=== PATIENT | male | born 1970 | race Caucasian/White ===

== ENCOUNTER → 2016-11-01 | Outpatient (CLI) | payer BC ==
[~2016-11-01] MED LIST: ASPIRIN E.C. 8181 MG PO; BRILINTA90 MG PO; BYSTOLIC2.5 MG PO; BYSTOLIC5 MG PO; ELIDEL CREAM15 GM TP; LAMICTAL 25MG T25 MG PO; LEXAPRO 10MG10 MG PO; LIPITOR 40MG TA40 MG PO; NEXIUM40 MG PO; NITROSTAT0.4 MG/TAB SL; NORCO 325 MG-51 TAB PO; PLAVIX 75MG TAB75 MG PO; PROTONIX 40MG T40 MG PO; TOPROL PO; TOPROL XL 50MG50 MG PO; VASOTEC 5MG5 MG/TAB PO; VIIBRYD20 MG PO; XANAX 0.5MG0.5 MG PO; XANAX0.5 MG PO; ZANTAC 7575 MG PO
== END ==
LOC: BHSO 09:45
DX: F41.1 Generalized anxiety disorder (principal)

== ENCOUNTER → 2016-12-06 | Outpatient (CLI) | payer BC | LOC: BHSO 10:01 | DX: F41.1 Generalized anxiety disorder (principal) ==

== ENCOUNTER → 2017-01-17 | Outpatient (CLI) | payer BC | LOC: BHSO 13:43 | DX: F41.1 Generalized anxiety disorder (principal) ==

== ENCOUNTER → 2017-03-01 | Outpatient (CLI) | payer BC ==
[2017-03-01 11:16] VITALS: BP 130/100; PULSE 123
== END ==
LOC: COL.CARD 02-15 11:30
DX: I25.10 Atherosclerotic heart disease of native coronary artery without angina pectoris (principal)
CPT/HCPCS: A9502

== ENCOUNTER → 2017-03-10 | Outpatient (CLI) | payer BC | LOC: BHSO 15:37 | DX: F41.1 Generalized anxiety disorder (principal) ==

== ENCOUNTER 2017-04-19 18:07 | Emergency (ER) | payer OTHER ==
[2006-05-08 11:20] VITALS: BP 143/83
[~2017-04-19] VITALS: Ht 170.2 cm; Wt 102.3 kg
[~2017-04-19 18:07] MED LIST changes: -NORCO 325 MG-51 TAB PO
[2017-04-19 18:13] VITALS: TEMP 99.1
[2017-04-19] MEDS ORDERED: NORCO 325 MG-51 TAB PO (19:43)
[2017-04-19 19:55] VITALS: BP 130/78; PULSE 80
== END 2017-04-19 19:55 | disposition home or self-care (01) ==
LOC: COL.ER 18:07
DX: S80.12XA Contusion of left lower leg, initial encounter (principal); I10 Essential (primary) hypertension; F41.9 Anxiety disorder, unspecified; K21.9 Gastro-esophageal reflux disease without esophagitis; Z79.82 Long term (current) use of aspirin; V28.4XXA Motorcycle driver injured in noncollision transport accident in traffic accident, initial encounter; Y93.I9 Activity, other involving external motion

== ENCOUNTER → 2017-06-09 | Outpatient (CLI) | payer OTHER ==
[~2017-06-09] MED LIST changes: +NORCO 325 MG-51 TAB PO
== END ==
LOC: BHSO 10:28
DX: F41.1 Generalized anxiety disorder (principal)

== ENCOUNTER → 2017-07-18 | Outpatient (CLI) | payer OTHER | LOC: BHSO 10:37 | DX: F41.1 Generalized anxiety disorder (principal) ==

== ENCOUNTER 2017-08-09 14:02 | Emergency (ER) | payer BC ==
[2006-05-08 11:20] VITALS: BP 143/83
[~2017-08-09] VITALS: Ht 170.2 cm; Wt 100.0 kg
[2017-08-09 14:08] VITALS: TEMP 97.8
[2017-08-09 15:06] LABS: BASO # 0.1 (0.0-0.2); BASO % 0.5 % (0.0-2.0); EOS # 0.1 (0.0-0.7); GRAN # 10.1 (1.4-6.5); HEMATOCRIT 42.9 % (42.0-52.0); LYMPH # 1.8 (1.2-3.4); LYMPH % 14.2 % (20.0-51.0); MEAN CELL VOLUME 89 fl (80.0-100.0); MEAN CORPUSCULAR HEMOGLOBIN 31 pg (27.0-31.0); MEAN CORPUSCULAR HGB CONC 35 g/dl (33.0-37.0); MEAN PLATELET VOLUME 9.6 fl (7.4-10.4); MONO # 0.5 (0.1-0.6); PLATELET COUNT 223 K/mm3 (130-400); WHITE BLOOD COUNT 12.6 K/mm3 (4.8-10.8)
[2017-08-09 15:07] LABS: INR 1.2 (0.8-3.0); PROTHROMBIN TIME 12.8 SECONDS (9.7-12.8)
[2017-08-09 15:09] LABS: PARTIAL THROMBOPLASTIN TIME 31.8 SECONDS (26.0-37.0)
[2017-08-09 15:11] LABS: ADJUSTED CALCIUM 8.6 mg/dL (8.4-10.2); ALANINE AMINOTRANSFERASE 68 U/L (21-72); ALBUMIN 5.2 gm/dL (3.5-5.0); ALKALINE PHOSPHATASE 96 U/L (50-136); ANION GAP 13 mmol/L (7-16); BILIRUBIN,TOTAL 0.9 mg/dL (0.0-1.0); BLOOD UREA NITROGEN 15 mg/dL (9-20); CALCIUM 9.6 mg/dL (8.4-10.2); CARBON DIOXIDE 22 mmol/L (22-30); CHLORIDE 106 mmol/L (98-107); CREATININE, serum 0.95 mg/dL (0.66-1.25); GLUCOSE 132 mg/dL (74-106); POTASSIUM 3.7 mmol/L (3.4-5.0); SODIUM 142 mmol/L (137-145); TOTAL PROTEIN 7.5 gm/dL (6.4-8.2)
[2017-08-09 15:23] LABS: TROPONIN-I < 0.012 ng/mL (0.000-0.034)
[2017-08-09 18:45] VITALS: BP 126/80; PULSE 94
== END 2017-08-09 18:55 | disposition home or self-care (01) ==
LOC: COL.ER 14:02
PROVIDERS: Emergency Medicine
DX: R07.89 Other chest pain (principal); I10 Essential (primary) hypertension; E78.5 Hyperlipidemia, unspecified; Z95.5 Presence of coronary angioplasty implant and graft

== ENCOUNTER → 2017-08-21 | Outpatient (CLI) | payer BC | LOC: COL.RAD 08:00 | DX: K21.0 Gastro-esophageal reflux disease with esophagitis (principal) ==

== ENCOUNTER → 2017-09-01 | Outpatient (CLI) | payer BC | LOC: BHSO 08:55 | DX: F41.1 Generalized anxiety disorder (principal) ==

== ENCOUNTER 2018-04-13 13:12 | Emergency (ER) | payer BC ==
[2006-05-08 11:20] VITALS: BP 143/83
[~2018-04-13] VITALS: Ht 170.2 cm; Wt 96.8 kg
[2018-04-13 13:19] VITALS: TEMP 98.4
[2018-04-13 13:40] LABS: BASO % 0.5 % (0.0-2.0); EOS # 0.3 (0.0-0.7); EOS % 2.8 % (0-4.0); GRAN # 6.5 (1.4-6.5); GRAN % 73.4 % (42.2-75.2); HEMATOCRIT 41.7 % (42.0-52.0); HEMOGLOBIN 14.7 g/dl (13.5-18.0); LYMPH # 1.7 (1.2-3.4); LYMPH % 19.3 % (20.0-51.0); MEAN CELL VOLUME 87 fl (80.0-100.0); MEAN CORPUSCULAR HEMOGLOBIN 31 pg (27.0-31.0); MEAN CORPUSCULAR HGB CONC 35 g/dl (33.0-37.0); MEAN PLATELET VOLUME 9.4 fl (7.4-10.4); MONO # 0.3 (0.1-0.6); MONO % 3.8 % (1.7-9.3); PLATELET COUNT 194 K/mm3 (130-400); RED BLOOD COUNT 4.77 M/mm3 (4.20-5.60); REDCELL DISTRIBUTION WIDTH-CV 12.3 % (11.5-14.5)
[2018-04-13 13:45] LABS: ALANINE AMINOTRANSFERASE 49 U/L (21-72); ALBUMIN 4.5 gm/dL (3.5-5.0); ALKALINE PHOSPHATASE 116 U/L (50-136); ANION GAP 14 mmol/L (7-16); AST,SGOT 27 U/L (15-37); BLOOD UREA NITROGEN 12 mg/dL (9-20); CALCIUM 9.3 mg/dL (8.4-10.2); CARBON DIOXIDE 22 mmol/L (22-30); CHLORIDE 105 mmol/L (98-107); CREATININE, serum 0.96 mg/dL (0.66-1.25); GLUCOSE 126 mg/dL (74-106); LIPASE 66 U/L (23-300); POTASSIUM 3.8 mmol/L (3.4-5.0); SODIUM 140 mmol/L (137-145); TOTAL PROTEIN 7.5 gm/dL (6.4-8.2)
[2018-04-13 13:57] LABS: TROPONIN-I < 0.012 ng/mL (0.000-0.034)
[2018-04-13 16:14] VITALS: BP 109/62; PULSE 97
== END 2018-04-13 16:14 | disposition home or self-care (01) ==
LOC: COL.ER 13:12
PROVIDERS: Nurse Practitioner Primary Care
DX: K21.9 Gastro-esophageal reflux disease without esophagitis (principal); I10 Essential (primary) hypertension; F41.9 Anxiety disorder, unspecified; I25.2 Old myocardial infarction; Z90.49 Acquired absence of other specified parts of digestive tract; Z79.82 Long term (current) use of aspirin

== ENCOUNTER 2018-09-20 14:41 | Day surgery (SDC) | payer BC ==
[2006-05-08 11:20] VITALS: BP 143/83
[~2018-09-20] VITALS: Ht 170.2 cm; Wt 89.8 kg
[2018-09-20] MEDS ORDERED: PROTONIX 40MG T40 MG PO (14:56)
[2018-09-20] MEDS ORDERED: LAMICTAL150 MG (14:56)
[2018-09-20] MEDS ORDERED: TUMS500 MG (14:57)
[2018-09-20] MEDS ORDERED: TUMS500 MG PO (14:58)
[2018-09-20 17:03] VITALS: BP 129/90; PULSE 84; TEMP 98.2
[2018-09-20 17:15] VITALS: BP 119/70; PULSE 91
[2018-09-20 17:30] VITALS: BP 111/82; PULSE 75
[2018-09-20 17:45] VITALS: BP 113/77; PULSE 60
[2018-09-20 18:00] VITALS: BP 106/71; PULSE 64
[2018-09-20 18:05] VITALS: BP 131/88; PULSE 90
== END 2018-09-20 18:25 | disposition home or self-care (01) ==
LOC: SDCO 14:41
DX: K21.9 Gastro-esophageal reflux disease without esophagitis (principal); K22.4 Dyskinesia of esophagus; F41.9 Anxiety disorder, unspecified; E78.00 Pure hypercholesterolemia, unspecified; Z88.5 Allergy status to narcotic agent; Z79.82 Long term (current) use of aspirin; Z83.79 Family history of other diseases of the digestive system; Z90.49 Acquired absence of other specified parts of digestive tract
CPT/HCPCS: J0585; J2250; J2405; J3010; J7030

== ENCOUNTER 2022-12-26 06:35 | Day surgery (SDC) | payer BC ==
[2006-05-08 11:20] VITALS: BP 143/83
[~2022-12-26] VITALS: Ht 170.2 cm; Wt 103.2 kg
[~2022-12-26 06:35] MED LIST changes: +LAMICTAL150 MG; +TUMS500 MG; +TUMS500 MG PO
[2022-12-26] MEDS ORDERED: KLONOPIN 0.5MG0.5 MG PO (07:28)
[2022-12-26] MEDS ORDERED: DEXILANT60 MG PO (07:29)
[2022-12-26] MEDS ORDERED: PEPCID40 MG PO (07:31)
[2022-12-26] MEDS ORDERED: REMERON 15M15 MG/TA1 (07:33)
[2022-12-26] MEDS ORDERED: LYRICA 150MG C150 MG PO (07:33)
[2022-12-26] MEDS ORDERED: DULCOLAX STOOL100 MG PO (07:34)
[2022-12-26 08:30] VITALS: BP 112/73; PULSE 80; TEMP 97
[2022-12-26 08:45] VITALS: BP 114/88; PULSE 76
[2022-12-26 09:00] VITALS: BP 111/73; PULSE 72
[2022-12-26 10:15] VITALS: BP 132/92; PULSE 93; TEMP 97.1
--- NOTE | 2022-12-26 10:27 | NUR ---
0825: DR. BLANCA IN TO SPEAK WITH PATIENTS AT THIS TIME. 0830: PATIENT TO BAY 1 PER CART FROM ENDO SUITE. REPORT RECEIVED FROM ENDO RN. VS OBTAINED. VS STABLE. BREATHING EVEN AND UNLABORED. PATIENT REQUESTING WATER AND CRACKERS. PATIENT DENIES ANY PAIN OR DISCOMFORT AT THIS TIME. RESTING IN RECLINER. AT SIDE. CALL LIGHT IN REACH. 0845: PATIENT TOLERATING CRACKERS AND WATER. VS REMAIN STABLE. NO COMPLAINTS AT THIS TIME. REMAINS AT SIDE. CALL LIGHT IN REACH. 0900: VS REMAINS STABLE. NO COMPLAINTS AT THIS TIME. CALL LIGHT IN REACH. 0910: DISCHARGE EDUCATION COMPLETED. PATIENT STATES UNDERSTANDING OF HOME INSTRUCTIONS. DISCHARGE PAPERWORK GIVEN TO PATIENT. IV DC'D AT THIS TIME. PATIENT DENIES ANY ASSISTANCE DRESSING. 0920: PATIENT OFF UNIT VIA WHEEL CHAIR. PATIENT DC'D TO HOME WITH PER PERSONAL VEHICLE.
== END 2022-12-26 09:20 | disposition home or self-care (01) ==
LOC: SDCO 06:35
DX: K64.1 Second degree hemorrhoids (principal); K60.1 Chronic anal fissure
CPT/HCPCS: J0585; J2704; J7120